=== PATIENT | male | born 1945 | race Caucasian/White ===

== ENCOUNTER 2017-11-12 14:23 | Inpatient (IN) | payer OTHER ==
[~2017-11-12] VITALS: Ht 171.4 cm; Wt 81.8 kg
[~2017-11-12 14:23] MED LIST: Advair 500/50 Diskus IH; Levaquin PO; Proair HFA IH; Spiriva IH; predniSONE PO
[2017-11-12 15:08] LABS: BASE EXCESS -2.4 mEq/L (-3 to +3); BICARBONATE 26.1 mEq/L (22-26); CARBOXY HGB 3.6 % (0-5); COMMENTS - BLOOD GASES +C; DEVICE NC; METHEMOGLOBIN 0.1 % (0-1.5); O2 FLOW 4 L/MIN; PCO2 61 mm Hg (35-45); PO2 96 mm Hg (80-100); SITE LR +A
[2017-11-12 15:09] LABS: TOTAL RESP RATE 24 resp/min; pH 7.24 (7.35-7.45)
[2017-11-12 15:14] LABS: HEMATOCRIT 43.4 % (38.0-50.0); HEMOGLOBIN 14.7 G/DL (12.5-16.6); MCH 30.6 PG (29.0-34.0); MCHC 33.9 G/DL (30.0-36.0); MCV 90.4 FL (86-99); PLATELET COUNT 210 K/uL (156-360); RBC DIS.WIDTH-CV 13.5 % (11.8-14.6); RBC DIS.WIDTH-SD 45.6 % (39-53); WHITE BLOOD COUNT 7.9 K/uL (4.1-10.2)
[2017-11-12 15:19] LABS: INTER. NORMALIZED RATIO 1.1
[2017-11-12 15:21] LABS: PTT 29.5 SEC (25-37)
[2017-11-12 15:28] LABS: ALBUMIN 3.2 g/dL (3.2-4.8); CHLORIDE 100 mEq/L (99-109); POTASSIUM 4.6 mEq/L (3.7-5.4); SODIUM 137 mEq/L (136-147)
[2017-11-12 15:29] LABS: MAGNESIUM 2.8 mg/dL (1.3-2.7)
[2017-11-12 15:30] LABS: GLUCOSE 107 mg/dL (70-99); TOTAL PROTEIN 6.6 g/dL (6.4-8.3)
[2017-11-12 15:32] LABS: TOTAL BILIRUBIN 0.7 mg/dL (0.0-1.0)
[2017-11-12 15:34] LABS: ALKALINE PHOSPHATASE 69 IU/L (3-129); CREATININE 2.1 mg/dL (0.6-1.3); GFR ESTIMATE (CALCULATED) 33 mL/min/ (58.99-99999)
[2017-11-12 15:35] LABS: UREA NITROGEN (BUN) 84 mg/dL (9-23)
[2017-11-12 15:36] LABS: AST (GOT) 51 IU/L (2-34)
[2017-11-12 15:37] LABS: ALT (GPT) 56 IU/L (3-49)
[2017-11-12 15:39] LABS: TROP-I INTERPRETATION NEGATIVE; TROPONIN-I 0.02 ng/mL (0.0-0.30)
[2017-11-12] MEDS ORDERED: SYMBICORT60 INHALAT IH (15:48)
[2017-11-12] MEDS ORDERED: ALBUTEROL2.5 MG/3 M IH (15:49)
[2017-11-12] MEDS ORDERED: ADULT ASPIRIN R81 MG PO (15:49)
[2017-11-12 15:51] LABS: ANISOCYTOSIS 1+; BASOPHIL (%) 0.4 % (0-1); EOSINOPHIL (%) 0 % (0-5); IMMATURE GRANULOCYTE (%) 1.4 % (0.0-0.7); LYMPHOCYTE COUNT 0.7 K/uL (1.0-2.8); MICROCYTOSIS 1+; MONOCYTE (%) 8.3 % (3-12); MONOCYTE COUNT 0.7 K/uL (0-0.8); NEUTROPHIL (%) 80.9 % (45-76); NEUTROPHIL COUNT 6.4 K/uL (1.8-6.4)
[2017-11-12 20:46] LABS: BASE EXCESS -0.2 mEq/L (-3 to +3); BICARBONATE 27.1 mEq/L (22-26); METHEMOGLOBIN 0.7 % (0-1.5)
[2017-11-12 20:47] LABS: COMMENTS - BLOOD GASES A+C+; DEVICE NC; O2 FLOW 4 L/MIN; PCO2 55 mm Hg (35-45); PO2 50 mm Hg (80-100); SITE LR; TOTAL RESP RATE 24 resp/min
[2017-11-12 20:48] LABS: APPEARANCE CLEAR ((CLEAR)); BILIRUBIN NEGATIVE; BLOOD MODERATE; COLOR YELLOW ((YELLOW)); GLUCOSE (STRIP) NEGATIVE; KETONES NEGATIVE; LEUKOCYTES NEGATIVE; NITRITE NEGATIVE; PROTEIN (STRIP) 100; SPECIFIC GRAVITY 1.012 (1.000-1.030); UROBILINOGEN 0.2 MG/DL (0.2-1.0)
[2017-11-12 21:13] LABS: BACTERIA RARE /HPF; EPITHELIAL CELLS RARE /HPF; HYALINE CASTS 0-5 /LPF; MUCUS TRACE /LPF; RED BLOOD CELLS 0-5 /HPF (0-5); UCUL ADDED? NO; WHITE BLOOD CELLS 0-5 /HPF (0-5)
[2017-11-12 23:38] LABS: BASE EXCESS -1.3 mEq/L (-3 to +3); BICARBONATE 26.3 mEq/L (22-26); CARBOXY HGB 1.7 % (0-5); COMMENTS - BLOOD GASES A+C+; DEVICE HFNC; METHEMOGLOBIN 0.9 % (0-1.5); O2 FLOW 10 L/MIN; PCO2 56 mm Hg (35-45); PO2 73 mm Hg (80-100); SITE LR; TOTAL RESP RATE 20 resp/min; pH 7.28 (7.35-7.45)
[2017-11-13] VITALS (16 sets, daily range): BP systolic 100–157; BP diastolic 54–83
[2017-11-13 08:51] LABS: HEMATOCRIT 36.5 % (38.0-50.0); MCH 30.7 PG (29.0-34.0); MCHC 33.4 G/DL (30.0-36.0); MCV 91.9 FL (86-99); PLATELET COUNT 197 K/uL (156-360); RBC DIS.WIDTH-SD 47.3 % (39-53); RED BLOOD COUNT 3.97 M/uL (4.00-5.50); WHITE BLOOD COUNT 6.5 K/uL (4.1-10.2)
[2017-11-13 08:59] LABS: HEMOGLOBIN 12.2 G/DL (12.5-16.6)
[2017-11-13 09:41] LABS: CHLORIDE 107 MEQ/L (99-109); POTASSIUM 4.3 MEQ/L (3.7-5.4); SODIUM 137 MEQ/L (136-147); UREA NITROGEN (BUN) 69 mg/dL (9-23)
[2017-11-13 09:42] LABS: CREATININE 1.6 MG/DL (0.6-1.3); GFR ESTIMATE (CALCULATED) 46 mL/min/ (58.99-99999); GLUCOSE 186 mg/dL (70-99)
[2017-11-14] VITALS (10 sets, daily range): BP systolic 107–130; BP diastolic 45–65
[2017-11-14 05:44] LABS: HEMATOCRIT 36.8 % (38.0-50.0); HEMOGLOBIN 11.7 G/DL (12.5-16.6); MCH 29.7 PG (29.0-34.0); MCHC 31.8 G/DL (30.0-36.0); MCV 93.4 FL (86-99); PLATELET COUNT 227 K/uL (156-360); RBC DIS.WIDTH-CV 14.1 % (11.8-14.6); RBC DIS.WIDTH-SD 48.9 % (39-53); RED BLOOD COUNT 3.94 M/uL (4.00-5.50); WHITE BLOOD COUNT 6.8 K/uL (4.1-10.2)
[2017-11-14 06:07] LABS: CHLORIDE 107 MEQ/L (99-109); CREATININE 1.4 MG/DL (0.6-1.3); GFR ESTIMATE (CALCULATED) 53 mL/min/ (58.99-99999); GLUCOSE 234 mg/dL (70-99); POTASSIUM 4.5 MEQ/L (3.7-5.4); SODIUM 140 MEQ/L (136-147); UREA NITROGEN (BUN) 57 mg/dL (9-23)
[2017-11-15 03:49] VITALS: BP 132/62
[2017-11-15 06:28] LABS: CHLORIDE 108 MEQ/L (99-109); CREATININE 1.4 MG/DL (0.6-1.3); GFR ESTIMATE (CALCULATED) 53 mL/min/ (58.99-99999); GLUCOSE 151 mg/dL (70-99); MAGNESIUM 2.4 mg/dl (1.3-2.7); SODIUM 141 MEQ/L (136-147); UREA NITROGEN (BUN) 50 mg/dL (9-23)
[2017-11-15 07:25] VITALS: BP 122/56
[2017-11-15 08:43] LABS: HEMATOCRIT 34.7 % (38.0-50.0); HEMOGLOBIN 11.2 G/DL (12.5-16.6); MCH 29.9 PG (29.0-34.0); MCHC 32.3 G/DL (30.0-36.0); MCV 92.8 FL (86-99); RBC DIS.WIDTH-CV 14.1 % (11.8-14.6); RBC DIS.WIDTH-SD 48.1 % (39-53); RED BLOOD COUNT 3.74 M/uL (4.00-5.50)
[2017-11-15 08:44] LABS: PLATELET COUNT 303 K/uL (156-360)
[2017-11-15 09:11] LABS: BASOPHIL (%) 0.3 % (0-1); EOSINOPHIL (%) 0 % (0-5); IMMATURE GRANULOCYTE (%) 4.2 % (0.0-0.7); LYMPHOCYTE (%) 8.1 % (15-42); LYMPHOCYTE COUNT 0.8 K/uL (1.0-2.8); MONOCYTE (%) 3.6 % (3-12); MONOCYTE COUNT 0.4 K/uL (0-0.8); NEUTROPHIL (%) 83.8 % (45-76); NEUTROPHIL COUNT 8.4 K/uL (1.8-6.4)
[2017-11-15 15:15] VITALS: BP 128/61
[2017-11-15] MEDS ORDERED: PREDNISONE5 M1 PO (15:51)
[2017-11-15] MEDS ORDERED: TAMIFLU30 MG PO (15:52)
[2017-11-15] MEDS ORDERED: KEFLEX500 MG PO (15:59)
[2017-11-15] MEDS ORDERED: AZITHROMYCIN250 MG1 PO (15:59)
== END 2017-11-15 19:36 | disposition home or self-care (01) | DRG 190 ==
LOC: EME 14:23 → EDOF 11-13 00:34 → 4WEST 11-13 00:34 → ENRESERV 11-13 00:35 → 4WEST 11-13 02:24 → ENRESERV 11-14 10:42 → 5EAST 11-14 14:16
PROVIDERS: Emergency Medicine; Internal Medicine Critical Care Medicine; Internal Medicine Pulmonary Disease; Physician Assistant
DX: J44.0 Chronic obstructive pulmonary disease with (acute) lower respiratory infection (principal); J10.08 Influenza due to other identified influenza virus with other specified pneumonia; J96.21 Acute and chronic respiratory failure with hypoxia; J96.22 Acute and chronic respiratory failure with hypercapnia; J18.9 Pneumonia, unspecified organism; J44.1 Chronic obstructive pulmonary disease with (acute) exacerbation; J10.1 Influenza due to other identified influenza virus with other respiratory manifestations; N17.9 Acute kidney failure, unspecified; R79.89 Other specified abnormal findings of blood chemistry; R06.82 Tachypnea, not elsewhere classified; J90 Pleural effusion, not elsewhere classified; Z66 Do not resuscitate; E87.2 Acidosis; I49.3 Ventricular premature depolarization; Z87.891 Personal history of nicotine dependence; Z99.81 Dependence on supplemental oxygen; Z82.49 Family history of ischemic heart disease and other diseases of the circulatory system
CPT/HCPCS: 36600; 71045; 80048; 80053; 80202; 81003; 82803; 83605; 83735; 84484; 85025; 85027; 85610; 85730; 87040; 87449; 87493; 87502; 87641; 93005; 94002; 94640; 94640 76; 94760; 94799; 99202; 99281; 99285; J0456; J0696; J1644; J1956; J2920; J2930; J3105; J3370; J7030; J7644